=== PATIENT | female | born 1965 | race Caucasian/White ===

== ENCOUNTER 2018-09-10 08:30 | Emergency (ER) | payer SELFPAY ==
[~2018-09-10] VITALS: Ht 154.9 cm; Wt 114.3 kg
--- NOTE | 2018-09-10 08:35 | NUR ---
PT CALLED FOR TRIAGE "WENT TO THE COFFEE CART"
[2018-09-10 08:36] VITALS: BP 163/116
== END 2018-09-10 09:44 | disposition left against medical advice (07) ==
LOC: ED 09:37
DX: Z76.0 Encounter for issue of repeat prescription (principal); Z53.21 Procedure and treatment not carried out due to patient leaving prior to being seen by health care provider